=== PATIENT | female | born 1995 | race African-American/Black ===

== ENCOUNTER 2016-10-27 13:38 | Emergency (ER) | payer MEDICAID, OTHER ==
[~2016-10-27] VITALS: Ht 170.2 cm; Wt 100.0 kg
[~2016-10-27 13:38] MED LIST: CLIN150 PO
[2016-10-27 13:40] VITALS: BP 137/63; PULSE 84; RESP 14; TEMP 97.8; O2SAT 100
--- NOTE | 2016-10-27 14:56 | PD ---
HPI Chief Complaint: Complaint Time Seen by Provider: 14:55 Travel History International Travel<30 days: No Contact w/Intl Traveler<30days: No Traveled to known affect area: No History of Present Illness HPI 21-year-old female with PMH of anxiety, asthma, GERD presents to the ED for evaluation of 3 day history of dysuria, increased urinary urgency and frequency. Gradual onset. Patient also complains of thick white vaginal discharge. She states this is similar to previous episodes of yeast infection. She states that she is not currently sexually active. LMP 6 weeks ago. States her period is irregular. Denies fever, chills, flank pain, abdominal pain, hematuria, nausea or vomiting. PFSH Past Medical History Anxiety: Yes Diminished Hearing: No GERD: Yes Respiratory: Yes (ASTHMA) Immunizations Current: Yes ?: Not : 1 Para: 1 Past Surgical History Abdominal Surgery: Yes (UMBILICAL HERNIA REPAIR) Section: Yes Social History Alcohol Use: No Tobacco Use: No Substance Use: No Allergies-Medications (Allergen,Severity, Reaction): Coded Allergies: Phenergan (Verified Allergy, Severe, Swelling, 10/27/16) TONGUE SWELLING Bactrim (Verified Allergy, Intermediate, Hives, 10/27/16) this was reported by pts mom. Reported Meds & Prescriptions Reported Meds & Active Scripts Active Pyridium (Phenazopyridine HCl) 100 Mg Tab 100 Mg PO Q8H PRN Miconazole 3 Vaginal Supp (Miconazole Nitrate) 200 Mg Supp 200 Mg VAGINAL HS Macrobid (Nitrofurantoin Monoh/Nitrofur Macro) 100 Mg Cap 100 Mg PO BID 7 Days Review of Systems Except as stated in HPI: all other systems reviewed are Neg Physical Exam Narrative GENERAL: Well-nourished, well-developed nontoxic appearing white female in no acute distress. SKIN: Warm and dry. HEAD: Normocephalic. EYES: No scleral icterus. No injection or drainage. NECK: Supple, trachea midline. No JVD or lymphadenopathy. CARDIOVASCULAR: Regular rate and rhythm without murmurs, gallops, or rubs. RESPIRATORY: Breath sounds clear and equal bilaterally. No accessory muscle use. GASTROINTESTINAL: Abdomen soft, non-tender, nondistended. No suprapubic tenderness. Active bowel sounds. MUSCULOSKELETAL: No cyanosis, or edema. BACK: Nontender without obvious deformity. No CVA tenderness. Data Data Last Documented VS Vital Signs Date Time Temp Pulse Resp B/P Pulse Ox O2 Delivery O2 Flow Rate FiO2 10/27/16 15:16 16 10/27/16 13:40 97.8 84 137/63 100 Room Air Orders Urinalysis - C+S If Indicated (10/27/16 13:47) Ed Urine Pregnancytest Poc (10/27/16 15:08) Urine Culture (10/27/16 15:15) Labs Laboratory Tests Test 10/27/16 15:15 Urine Color YELLOW Urine Turbidity HAZY Urine pH 7.0 Urine Specific [place] 1.032 Urine Protein 30 mg/dL Urine Glucose (UA) NEG mg/dL Urine Ketones NEG mg/dL Urine Occult Blood NEG Urine Nitrite NEG Urine Bilirubin NEG Urine Urobilinogen 2.0 MG/DL Urine Leukocyte Esterase LARGE Urine RBC 7 /hpf Urine WBC 23 /hpf Urine Squamous Epithelial 17 /hpf Cells Urine Bacteria OCC /hpf Urine Mucus FEW /lpf Microscopic Urinalysis Comment CULTURE INDICATED MDM Medical Decision Making Medical Screen Exam Complete: Yes Emergency Medical Condition: Yes Differential Diagnosis Cystitis versus pyelonephritis versus vaginal candidiasis versus STI versus other Narrative Course 21-year-old female with PMH of anxiety, asthma, GERD presents to the ED for evaluation of 3 day history of dysuria, increased urinary urgency and frequency. Gradual onset. Patient also complains of thick white vaginal discharge. She states this is similar to previous episodes of yeast infection. States that she has not been sexually active in 18 months. LMP 6 weeks ago. States her period is irregular. Denies fever, chills, flank pain, abdominal pain, hematuria, nausea or vomiting. Vitals and physical exam are reassuring. Bedside test is negative. We will defer pelvic exam since the patient has not been sexually active. We'll treat empirically for vaginal candidiasis. UA hazy with large leukocyte esterase, 23 wbc's, occasional bacteria, culture pending. Patient was prescribed Macrobid twice a day 7 days , short course of Pyridium and 3 day vaginal suppository of Monistat. She is instructed to take all medication as prescribed, even if symptoms resolve, follow up with the geomorphologist or primary care provider. She was cautioned that vaginal candidiasis symptoms can continue after treatment, we discussed reasons to return. She indicated understanding of the instructions and is amenable to plan of care. She is stable and discharged home. Diagnosis Primary Impression: Urinary tract infection Qualified Code: N30.00 - Acute cystitis without hematuria Additional Impressions: Cystitis Vaginal candidiasis Referrals: [facility] Primary Care Physician Patient Instructions: General Instructions, Urinary Tract Infection in Women ( ED), Vulvovaginal Candidiasis (ED) Additional Instructions: Rest, hydrate. Take all antibiotics as prescribed, even if your symptoms resolve. Take Pyridium as needed for pain with urination. Symptoms of yeast infection may continue for up to 5-7 days after treatment. Follow-up with the geomorphologist and primary care provider. Return to the ED for any urgent or emergent medical condition. Med/Other Pt SpecificInfo: Prescription(s) given Scripts Phenazopyridine (Pyridium)100 Mg [id number] Mg PO Q8H PRN (DYSURIA) #6 TAB Ref 0 Prov:Rajani Salas DO 10/27/16 Miconazole 3 Vaginal Supp 200 Mg [id number] Mg VAGINAL HS #3 SUPP Ref 0 Prov:Rajani Salas DO 10/27/16 Nitrofurantoin Monohydrate Macrocrystals (Macrobid)100 Mg [id number] Mg PO BID 7 Days Ref 0 Prov:Rajani Salas DO 10/27/16 Disposition: 01 DISCHARGE HOME Condition: Stable Harini Dasilva Oct 27, 2016 14:56
[2016-10-27 15:51] LABS: BACTERIA, URINE OCC /hpf; BLOOD, URINE NEG (NEG); COMMENT (UR) CULTURE INDICATED; CULTURE IF INDICATED CULTURE INDICATED; GLUCOSE,URINE NEG (NEG); KETONE, URINE NEG (NEG); MUCUS URINE FEW /lpf (OCC); NITRITE,URINE NEG (NEG); SQUAMOUS EPITHELIAL CELL URINE 17 /hpf (0-5); URINE COLOR YELLOW (YELLW/STRAW)
[2016-10-27] MEDS ORDERED: MACR100C2 PO (16:02)
[2016-10-27] MEDS ORDERED: PHEN0.4T PO (16:02)
[2016-10-27] MEDS ORDERED: MICO200V VAGINAL (16:02)
== END 2016-10-27 16:42 | disposition home or self-care (01) ==
LOC: NEPA 13:38
DX: N30.00 Acute cystitis without hematuria (principal); B37.3 Candidiasis of vulva and vagina; Z86.59 Personal history of other mental and behavioral disorders; Z87.09 Personal history of other diseases of the respiratory system; Z87.19 Personal history of other diseases of the digestive system
CPT/HCPCS: 81001; 84703; 87086; 99283

== ENCOUNTER 2017-01-03 11:23 | Emergency (ER) | payer MEDICAID, OTHER ==
[~2017-01-03] VITALS: Ht 170.2 cm; Wt 104.5 kg
[~2017-01-03 11:23] MED LIST changes: -CLIN150 PO; +MACR100C2 PO; +MICO200V VAGINAL; +PHEN0.4T PO
[2017-01-03 11:25] VITALS: BP 136/64; PULSE 84; RESP 20; TEMP 97.9; O2SAT 98
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
[2017-01-03] MEDS ORDERED: TETANUS/DIPHTHERIA TOXOID ADULT 0.5 ML VIAL IM ONE (12:30)
--- NOTE | 2017-01-03 12:48 | RADRPT ---
EXAM DATE/TIME: 01/03/2017 12:25 [facility] COMPARISON: No previous studies available for comparison. INDICATIONS : Right hand pain. MEDICAL HISTORY : None. SURGICAL HISTORY : None. ENCOUNTER: Initial ACUITY: 1 day PAIN SCORE: 5/10 LOCATION: Right medial hand FINDINGS: Three view examination of the right hand demonstrates no soft tissue swelling, dislocation, or fractu re. The carpal bones appear intact. The interphalangeal and metacarpophalangeal joints are intact. Bony mineralization is normal. CONCLUSION: No acute disease. John Aly MD on January 03, 2017 at 12:47 Board Certified Radiologist. This report was verified electronically.
== END 2017-01-03 13:18 | disposition home or self-care (01) ==
LOC: NEPB 11:23
DX: M79.641 Pain in right hand (principal); Z23 Encounter for immunization; S60.511A Abrasion of right hand, initial encounter; S50.811A Abrasion of right forearm, initial encounter; W51.XXXA Accidental striking against or bumped into by another person, initial encounter; Y93.9 Activity, unspecified; Y92.9 Unspecified place or not applicable
CPT/HCPCS: 73130; 90471; 90714

== ENCOUNTER 2017-03-30 14:11 | Emergency (ER) | payer MEDICAID ==
[~2017-03-30] VITALS: Ht 170.2 cm; Wt 100.0 kg
[2017-03-30 14:12] VITALS: BP 121/74; PULSE 107; RESP 16; TEMP 98.4; O2SAT 98
--- NOTE | 2017-03-30 14:44 | PD ---
Physical Exam Time Seen by Provider: 14:43 Narrative 21 y/o female here with n/v, lower abdominal pain for one day. lmp 2 weeks ago. Denies dysuria, vaginal bleeding/dc. Vital signs reviewed. Seen at triage desk. Awaiting bed placement. Data Data Last Documented VS Vital Signs Date Time Temp Pulse Resp B/P Pulse Ox O2 Delivery O2 Flow Rate FiO2 03/30/17 14:12 98.4 107 16 121/74 98 MDM Medical Record Reviewed: Yes Supervised Visit with KEMAR: No Ector Cameron Mar 30, 2017 14:44
== END 2017-03-30 15:05 | disposition left against medical advice (07) ==
LOC: NED 14:11
DX: R10.30 Lower abdominal pain, unspecified (principal)
CPT/HCPCS: 99281

== ENCOUNTER 2017-06-25 14:49 | Emergency (ER) | payer MEDICAID ==
[~2017-06-25] VITALS: Ht 172.7 cm; Wt 80.0 kg
[2017-06-25 14:52] VITALS: BP 113/64; PULSE 84; RESP 18; TEMP 97.8; O2SAT 99
--- NOTE | 2017-06-25 14:54 | PD ---
Physical Exam Time Seen by Provider: 14:53 Narrative 21yo F c/o dysuria, frequency, urgency x 1 week. Denies vag dc, odor, abd pain. LMP 2 weeks ago. Denies fever, vomiting. Patient seen in triage. VS reviewed. Awaiting bed placement. MDM Supervised Visit with KEMAR: Shelby Curtis Jun 25, 2017 14:54
[2017-06-25 15:33] LABS: BACTERIA, URINE FEW /hpf; BLOOD, URINE NEG (NEG); COMMENT (UR) CULTURE INDICATED; CULTURE IF INDICATED CULTURE INDICATED; GLUCOSE,URINE NEG (NEG); KETONE, URINE NEG (NEG); MUCUS URINE FEW /lpf (OCC); NITRITE,URINE NEG (NEG); PH, URINE 7.5 (5.0-8.5); SQUAMOUS EPITHELIAL CELL URINE 10 /hpf (0-5); URINE COLOR YELLOW (YELLW/STRAW)
--- NOTE | 2017-06-25 15:50 | PD ---
HPI Chief Complaint: Complaint Time Seen by Provider: 15:36 Travel History International Travel<30 days: No Contact w/Intl Traveler<30days: No Traveled to known affect area: No History of Present Illness HPI 21-year-old Afro-[place] female with history of recurrent urinary tract infections comes in with dysuria for the past week. Eyes flank pain, fever, or vaginal symptoms. She denies abdominal pain or nausea or vomiting. Urine sample was checked in triage showing probable urinary tract infection. Patient is allergic to promethazine, sulfa, and trimethoprim. PFSH Past Medical History Hx Anticoagulant Therapy: No Asthma: Yes Anxiety: Yes Cardiovascular Problems: No Chemotherapy: No Cerebrovascular Accident: No Diabetes: No Diminished Hearing: No GERD: Yes Respiratory: Yes (Asthma) Immunizations Current: Yes : 1 Para: 1 Miscarriage: 0 : 0 Past Surgical History Abdominal Surgery: Yes (UMBILICAL HERNIA REPAIR) Section: Yes (X 1 ) Social History Alcohol Use: No Tobacco Use: No Substance Use: No Allergies-Medications (Allergen,Severity, Reaction): Coded Allergies: promethazine (Unverified Allergy, Severe, Swelling, 06/09/17) TONGUE SWELLING sulfamethoxazole (Unverified Allergy, Intermediate, Hives, 06/09/17) this was reported by pts mom. trimethoprim (Unverified Allergy, Intermediate, Hives, 06/09/17) this was reported by pts mom. Reported Meds & Prescriptions Reported Meds & Active Scripts Active Pyridium (Phenazopyridine HCl) 100 Mg Tab 100 Mg PO Q8H PRN Miconazole 3 Vaginal Supp (Miconazole Nitrate) 200 Mg Supp 200 Mg VAGINAL HS Macrobid (Nitrofurantoin Monoh/Nitrofur Macro) 100 Mg Cap 100 Mg PO BID 7 Days Review of Systems General / Constitutional: No: Fever Eyes: No: Visual changes HENT: No: Headaches Cardiovascular: No: Chest Pain or Discomfort Respiratory: No: Shortness of Breath Gastrointestinal: No: Abdominal Pain Genitourinary: Positive: Urgency, Frequency, Dysuria Musculoskeletal: No: Pain Skin: No Rash Neurologic: No: Weakness Psychiatric: No: Depression Endocrine: No: Polydipsia Hematologic/Lymphatic: No: Easy Bruising Physical Exam Narrative GENERAL: Patient appears in no acute distress. SKIN: Warm and dry. Normal color. Normal turgor HEAD: Atraumatic. Normocephalic. EYES: Pupils equal and round. No scleral icterus. No injection or drainage. ENT: No nasal bleeding or discharge. Mucous membranes pink and moist. Pharynx is clear. NECK: Trachea midline. Supple. CARDIOVASCULAR: Regular rate and rhythm. RESPIRATORY: No accessory muscle use. Clear to auscultation. Breath sounds equal bilaterally. GASTROINTESTINAL: Abdomen soft, non-tender, nondistended. Hepatic and splenic margins not palpable. No CVA tenderness. MUSCULOSKELETAL: Extremities without clubbing, cyanosis, or edema. No obvious deformities. NEUROLOGICAL: Awake and alert. No obvious cranial nerve deficits. Motor grossly within normal limits. Five out of 5 muscle strength in the arms and legs. Normal speech. PSYCHIATRIC: Appropriate mood and affect; insight and judgment normal. Data Data Last Documented VS Vital Signs Date Time Temp Pulse Resp B/P (MAP) Pulse Ox O2 Delivery O2 Flow Rate FiO2 06/25/17 14:52 97.8 84 18 113/64 (80) 99 Room Air Orders Orders Urinalysis - C+S If Indicated (06/25/17 14:54) Ed Urine Pregnancytest Poc (06/25/17 14:54) Urine Culture (06/25/17 15:00) Labs Laboratory Tests Test 06/25/17 15:00 Urine Color YELLOW Urine Turbidity HAZY Urine pH 7.5 Urine Specific [place] 1.030 Urine Protein 30 mg/dL Urine Glucose (UA) NEG mg/dL Urine Ketones NEG mg/dL Urine Occult Blood NEG Urine Nitrite NEG Urine Bilirubin NEG Urine Urobilinogen 2.0 MG/DL Urine Leukocyte Esterase MOD Urine RBC 4 /hpf Urine WBC 12 /hpf Urine Squamous Epithelial Cells 10 /hpf Urine Amorphous Sediment RARE Urine Bacteria FEW /hpf Urine Mucus FEW /lpf Microscopic Urinalysis Comment CULTURE INDICATED MDM Medical Decision Making Medical Screen Exam Complete: Yes Emergency Medical Condition: Yes Differential Diagnosis Dysuria. Urinary frequency. Urinary tract infection. Narrative Course Urine culture is pending. Patient is treated with Keflex 500 mg 3 times a day 7 days. Patient to follow up with [facility]. Patient can follow-up sooner if symptoms worsen as needed. Diagnosis Primary Impression: Cystitis Referrals: [facility] Patient Instructions: Dysuria (ED), General Instructions Additional Instructions: Urine culture is pending. Patient is treated with Keflex 500 mg 3 times a day 7 days. Patient to follow up with [facility] with the women[facility]. Patient can follow-up sooner if symptoms worsen as needed. Med/Other Pt SpecificInfo: Prescription(s) given Disposition: 01 DISCHARGE HOME Condition: Stable Jim Up Jun 25, 2017 15:50
[2017-06-25] MEDS ORDERED: MICO200V VAGINAL (15:56)
[2017-06-25] MEDS ORDERED: CEPH-460 PO (15:56)
== END 2017-06-25 16:17 | disposition home or self-care (01) ==
LOC: NEPK 14:49
DX: N30.90 Cystitis, unspecified without hematuria (principal); J45.909 Unspecified asthma, uncomplicated; F41.9 Anxiety disorder, unspecified; K21.9 Gastro-esophageal reflux disease without esophagitis; Z79.899 Other long term (current) drug therapy; Z88.2 Allergy status to sulfonamides; Z88.8 Allergy status to other drugs, medicaments and biological substances
CPT/HCPCS: 81001; 84703; 87086; 99284

== ENCOUNTER 2017-09-01 18:29 | Emergency (ER) | payer MEDICAID ==
[~2017-09-01 18:29] MED LIST changes: +CEPH-460 PO
[2017-09-01 18:32] VITALS: BP 152/70; PULSE 96; RESP 18; TEMP 98.3; O2SAT 100
[2017-09-01] MEDS ORDERED: AMOX875T PO (19:37)
--- NOTE | 2017-09-01 19:40 | PD ---
HPI Chief Complaint: ENT Complaint Time Seen by Provider: 19:32 Travel History International Travel<30 days: No Contact w/Intl Traveler<30days: No Traveled to known affect area: No History of Present Illness HPI Patient comes in complaining of sore throat ongoing for 2 days. Patient states she had a fever yesterday of 101.5. Patient states she's been taking Tylenol seems to help alleviate the pain temporarily as well as her fever. Patient denies any nausea, vomiting, chest pain, shortness of breath, loss change in bowel or bladder, , or headaches. Patient reports associated sinus pressure ongoing for the past 2 days. Patient denies any known sick contacts, but states her son is in daycare has been having sinus congestion. Pain is worse with swallowing. Patient describes pain as excruciating without radiation. PFSH Past Medical History Hx Anticoagulant Therapy: No Asthma: Yes Anxiety: Yes Cardiovascular Problems: No Chemotherapy: No Cerebrovascular Accident: No Developmental Delay: No Diabetes: No Diminished Hearing: No GERD: Yes Respiratory: Yes (Asthma) Immunizations Current: Yes Tetanus Vaccination: < 5 Years Influenza Vaccination: No ?: Unknown : 1 Para: 1 Miscarriage: 0 : 0 Past Surgical History Abdominal Surgery: Yes (UMBILICAL HERNIA REPAIR) Section: Yes (X 1 ) Social History Alcohol Use: No Tobacco Use: No Substance Use: No Allergies-Medications (Allergen,Severity, Reaction): Coded Allergies: promethazine (Verified Allergy, Severe, Swelling, 09/01/17) TONGUE SWELLING sulfamethoxazole (Verified Allergy, Intermediate, Hives, 09/01/17) this was reported by pts mom. trimethoprim (Verified Allergy, Intermediate, Hives, 09/01/17) this was reported by pts mom. Reported Meds & Prescriptions Reported Meds & Active Scripts Active Amoxicillin 875 Mg Tab 875 Mg PO BID 10 Days Miconazole 3 Vaginal Supp (Miconazole Nitrate) 200 Mg Supp 200 Mg VAGINAL HS Keflex (Cephalexin) 500 Mg Capsule 500 Mg PO Q8H 7 Days Pyridium (Phenazopyridine HCl) 100 Mg Tab 100 Mg PO Q8H PRN Macrobid (Nitrofurantoin Monoh/Nitrofur Macro) 100 Mg Cap 100 Mg PO BID 7 Days Review of Systems Except as stated in HPI: all other systems reviewed are Neg Physical Exam Narrative GENERAL: Well-developed, overly nourished, in no acute distress, and non-ill appearing. SKIN: Focused skin assessment warm and dry. HEAD: Atraumatic. Normocephalic. EYES: Pupils equal and round. EOMI. No scleral icterus. No injection or drainage. ENT: No nasal bleeding or discharge. Mucous membranes pink and moist. Tympanic membranes pearly roach bilaterally. Posterior pharynx erythematous without exudate. Uvula is midline. Patient swallowing own saliva. Tenderness to maxillary sinuses bilaterally. NECK: Trachea midline. No cervical lymphadenopathy. Supple. No nuclear rigidity. CARDIOVASCULAR: Regular rate and rhythm. No murmur appreciated. RESPIRATORY: No accessory muscle use. No respiratory distress. Clear to auscultation. Breath sounds equal bilaterally. No coughing on exam. MUSCULOSKELETAL: No obvious deformities. No clubbing. No cyanosis. No edema. Full range of motion. NEUROLOGICAL: Awake and alert. No obvious cranial nerve deficits. Motor grossly within normal limits. Normal speech. PSYCHIATRIC: Appropriate mood and affect; insight and judgment normal. Data Data Last Documented VS Vital Signs Date Time Temp Pulse Resp B/P (MAP) Pulse Ox O2 Delivery O2 Flow Rate FiO2 09/01/17 19:46 09/01/17 18:32 98.3 96 18 100 Room Air Orders Orders Group A Rapid Strep Screen (09/01/17 18:45) Ed Discharge Order (09/01/17 19:40) Amoxicillin (Trimox) (09/01/17 19:45) [facility] Medical Decision Making Medical Screen Exam Complete: Yes Emergency Medical Condition: Yes Differential Diagnosis Strep pharyngitis, viral pharyngitis, upper respiratory infection, sinusitis, viral syndrome, other Narrative Course Patient looks great, non-ill appearing. The patient is tolerating fluids and is well hydrated. Appears pharyngitis confirmed by rapid Strep. assay. No clinical evidence by history or evaluation to suspect meningitis and/or sepsis. There was no evidence to suggest peritonsillar abscess or retropharyngeal abscess. I discussed with the patient, diagnosis, plan of care and to follow up with the patients primary physician. The patient was given antibiotics. The patient was instructed to return if the worsens in anyway, especially if not tolerating fluids, increased pain or swelling, difficulty swallowing or breathing, or as needed. The patient agreed with plan. Patient in no obvious distress upon re-evaluation. All pertinent laboratory result(s) discussed with patient. Patient was asked if they wanted to speak to my attending, which the patient did not wish to do at this time. Any questions/ concerns in reference to patient diagnosis/condition discussed and clarified prior to patient's discharge. Reinforced sheer importance of close follow up with patient's primary physician or primary care clinic. Instructed patient to return to ED immediately, if symptoms return/worsen. Patient showed understanding of above instructions. Further instructions and recommendations were detailed in discharge paperwork. Patient ambulated without difficulty out of ED at discharge. Diagnosis Primary Impression: Pharyngitis Qualified Codes: J02.0 - Streptococcal pharyngitis Referrals: [facility] Patient Instructions: General Instructions, Pharyngitis (DC) Additional Instructions: Follow-up with your primary care physician in 5-7 days for reevaluation. Take all medication as prescribed. Use [id number] Tylenol and/or ibuprofen as needed for pain and/or fevers. Follow instructions on the packaging. Drink plenty of non-caffeinated and nonalcoholic fluids. Gargle with warm salt water gargles for symptomatic relief. Do not swallow salt water. Return to the emergency department if symptoms get worse. Med/Other Pt SpecificInfo: Prescription(s) given Scripts Amoxicillin (Amoxicillin) 875 Mg Tab 875 MG PO BID for Infection for 10 Days, #20 TAB 0 Refills Prov: Bashir Estrada MD 09/01/17 Disposition: 01 DISCHARGE HOME Condition: Stable Cortez Ardon Sep 01, 2017 19:40
[2017-09-01] MEDS ORDERED: AMOXICILLIN 875 MG TAB PO ONE (19:45)
== END 2017-09-01 19:58 | disposition home or self-care (01) ==
LOC: NEPK 18:29
DX: J02.0 Streptococcal pharyngitis (principal); J45.909 Unspecified asthma, uncomplicated; F41.9 Anxiety disorder, unspecified; K21.9 Gastro-esophageal reflux disease without esophagitis
CPT/HCPCS: 87880; 99283

== ENCOUNTER 2018-01-11 08:10 | Emergency (ER) | payer SELFPAY ==
[~2018-01-11] VITALS: Ht 170.2 cm; Wt 102.0 kg
[~2018-01-11 08:10] MED LIST changes: +AMOX875T PO
[2018-01-11 08:13] VITALS: BP 147/71; PULSE 84; RESP 15; TEMP 98; O2SAT 99
--- NOTE | 2018-01-11 09:25 | PD ---
HPI Chief Complaint: Injury Time Seen by Provider: 09:13 Travel History International Travel<30 days: No Contact w/Intl Traveler<30days: No Traveled to known affect area: No History of Present Illness HPI 22-year-old [id number] female presents to ED for evaluation of pain of the right thumb after breaking her acrylic nail. It is rated 0/10 unless touched and then 10/10. Patient states that she was at work when the nail popped backwards somehow. She is unsure of the mechanism of injury.. She denies numbness, tingling, weakness, limitations to range of motion of the extremity. No treatment attempted at home. PFSH Past Medical History Hx Anticoagulant Therapy: No Asthma: Yes Anxiety: Yes Cardiovascular Problems: No Chemotherapy: No Cerebrovascular Accident: No Developmental Delay: No Diabetes: No Diminished Hearing: No GERD: Yes Respiratory: Yes (Asthma) Immunizations Current: Yes ?: Not LMP: 12/2017 : 1 Para: 1 Miscarriage: 0 : 0 Past Surgical History Abdominal Surgery: Yes (UMBILICAL HERNIA REPAIR) Section: Yes (X 1 ) Social History Alcohol Use: No Tobacco Use: No Substance Use: No Allergies-Medications (Allergen,Severity, Reaction): Coded Allergies: promethazine (Verified Allergy, Severe, Swelling, 01/11/18) TONGUE SWELLING sulfamethoxazole (Verified Allergy, Intermediate, Hives, 01/11/18) this was reported by pts mom. trimethoprim (Verified Allergy, Intermediate, Hives, 01/11/18) this was reported by pts mom. Reported Meds & Prescriptions Reported Meds & Active Scripts Active Review of Systems Except as stated in HPI: all other systems reviewed are Neg Physical Exam Narrative GENERAL: Well-nourished, well-developed AA female. SKIN: Focused skin assessment warm/dry. HEAD: Normocephalic. EYES: No scleral icterus. No injection or drainage. NECK: Supple, trachea midline. No JVD or lymphadenopathy. CARDIOVASCULAR: Regular rate and rhythm without murmurs, gallops, or rubs. RESPIRATORY: Breath sounds equal bilaterally. No accessory muscle use. GASTROINTESTINAL: Abdomen soft, non-tender, nondistended. MUSCULOSKELETAL: No cyanosis, or edema. FOCUSED RIGHT UPPER EXTREMITY EXAM: Extremity intact.There are 2+cm acrylic nails present. The nail of the thumb is broken ~2mm into the nail bed.There is scant bleeding but the tissue and nail bed is otherwise healthy. False nail is attached at the radial lateral distal border. BACK: Nontender without obvious deformity. No CVA tenderness. Data Data Last Documented VS Vital Signs Date Time Temp Pulse Resp B/P (MAP) Pulse Ox O2 Delivery O2 Flow Rate FiO2 01/11/18 08:13 98.0 84 15 147/71 (96) 99 Orders Orders Ed Discharge Order (01/11/18 09:25) MDM Medical Decision Making Medical Screen Exam Complete: Yes Emergency Medical Condition: Yes Differential Diagnosis nail avulsion versus wound infection versus Narrative Course 22-year-old [id number] female presents to ED for evaluation of pain of the right thumb after breaking her acrylic nail. Patient states that she was at work when the nail popped backwards somehow. She is unsure of the mechanism of injury. Vitals reviewed. On exam the patient has extremely long acrylic nails. The right thumb nail is broken approximately 2 mm below the distal tip of the nail. This is attached at the radial lateral distal border. This was easily removed by hand. The wound was washed and dried. A thin layer of antibiotic ointment and bandage was applied. Patient's instructed to keep the wound clean, dry, covered, have the acrylic nail removed and do not reapply until the nail is gone back to normal length. She is instructed to monitor for signs of infection, return should these occur. She is stable and discharged home. Diagnosis Primary Impression: Fingernail injury Qualified Codes: S69.92XA - Unspecified injury of left wrist, hand and finger( s), initial encounter Referrals: Primary Care Physician Additional Instructions: Keep the wound clean, dry and covered. Have the acrylic nail removed and do not reapply until your natural nail has grown in to normal length. Monitor for signs of infection (pus, redness, fevers.) 600mg ibuprofen every eight hours to reduce pain and inflammation. Elevating the hand may help to reduce throbbing pain. Follow up with the primary care provider. Return to the ED for any urgent or emergent medical condition. Disposition: 01 DISCHARGE HOME Condition: Stable Harini Dasilva Jan 11, 2018 09:25
== END 2018-01-11 09:32 | disposition home or self-care (01) ==
LOC: NEPK 08:10
DX: S69.91XA Unspecified injury of right wrist, hand and finger(s), initial encounter (principal); J45.909 Unspecified asthma, uncomplicated; F41.9 Anxiety disorder, unspecified; K21.9 Gastro-esophageal reflux disease without esophagitis; X50.9XXA Other and unspecified overexertion or strenuous movements or postures, initial encounter; Y99.0 Civilian activity done for income or pay; Z88.2 Allergy status to sulfonamides; Z88.8 Allergy status to other drugs, medicaments and biological substances
CPT/HCPCS: 99282

== ENCOUNTER 2018-02-19 19:35 | Emergency (ER) | payer MEDICAID ==
[2018-02-19 19:41] VITALS: BP 115/60; PULSE 106; RESP 18; TEMP 98.1; O2SAT 100
[2018-02-19 19:52] VITALS: O2SAT 99
--- NOTE | 2018-02-19 19:58 | PD ---
HPI Chief Complaint: Chest Pain Time Seen by Provider: 19:46 Travel History International Travel<30 days: No Contact w/Intl Traveler<30days: No Traveled to known affect area: No History of Present Illness HPI The patient is a 22-year-old female who presents to the emergency department for shortness of breath. Patient has a history of chronic shortness of breath which she attributes to asthma. The patient does not like to use her albuterol inhaler, states that elevates her heart rate. The patient states she has had some increasing shortness of breath over the last several days. The patient states she was seen or [facility] where they did a blood test for possible blood clots that was positive and then did a subsequent CT to evaluate for blood clots. The patient does not know the results of her CT at that time but does not currently take any blood thinners. She denies any recent hospitalizations, surgeries, or prolonged travel in the last 3 months. She denies any known history of cardiac disease or previous history of congestive heart failure. She denies any significant edema to lower extremities. She does note an intermittent dry nonproductive cough. She also complains of intermittent sharp stabbing anterior chest pains. She denies any associated fever, chills, or sweats. The patient recently lost insurance secondary to making too much money at work and is no longer able to see her primary physician, Dr. Carlin. [facility] Past Medical History Hx Anticoagulant Therapy: No Asthma: Yes Anxiety: Yes Cardiovascular Problems: No Chemotherapy: No Cerebrovascular Accident: No Developmental Delay: No Diabetes: No Diminished Hearing: No GERD: Yes Respiratory: Yes (Asthma) Immunizations Current: Yes Influenza Vaccination: No ?: Not LMP: 02/05/18 : 1 Para: 1 Miscarriage: 0 : 0 Past Surgical History Abdominal Surgery: Yes (UMBILICAL HERNIA REPAIR) Section: Yes (X 1 ) Social History Alcohol Use: No Tobacco Use: No Substance Use: No Allergies-Medications (Allergen,Severity, Reaction): Coded Allergies: promethazine (Verified Allergy, Severe, Swelling, 02/19/18) TONGUE SWELLING sulfamethoxazole (Verified Allergy, Intermediate, Hives, 02/19/18) this was reported by pts mom. trimethoprim (Verified Allergy, Intermediate, Hives, 02/19/18) this was reported by pts mom. Reported Meds & Prescriptions Reported Meds & Active Scripts Active No Active Prescriptions or Reported Medications Review of Systems Except as stated in HPI: all other systems reviewed are Neg General / Constitutional: No: Fever Cardiovascular: Positive: Chest Pain or Discomfort Respiratory: Positive: Cough, Shortness of Breath, Wheezing, Pleuritic Pain Gastrointestinal: No: Nausea, Vomiting Musculoskeletal: No: Edema Neurologic: No: Weakness Physical Exam Narrative GENERAL: Awake, alert, pleasant 22-year-old female who appears her stated age and is in no acute respiratory distress. SKIN: Focused skin assessment warm/dry. HEAD: Atraumatic. Normocephalic. EYES: No injection or drainage. ENT: No nasal bleeding or discharge. Mucous membranes pink and moist. NECK: Trachea midline. No JVD. CARDIOVASCULAR: Regular, tachycardic with a heart rate of 105. No audible murmur. Pulmonary: Slight prolonged expiratory phase with tight lung sounds. No audible wheeze. GASTROINTESTINAL: Abdomen soft, non-tender, nondistended. MUSCULOSKELETAL: No obvious deformities. No clubbing. No cyanosis. No edema. NEUROLOGICAL: Awake and alert. No obvious cranial nerve deficits. Motor grossly within normal limits. Normal speech. PSYCHIATRIC: Appropriate mood and affect; insight and judgment normal. Data Data Last Documented VS Vital Signs Date Time Temp Pulse Resp B/P (MAP) Pulse Ox O2 Delivery O2 Flow Rate FiO2 02/19/18 20:05 91 18 157/65 (95) 98 Room Air 02/19/18 19:41 98.1 Orders Orders Complete Blood Count With Diff (02/19/18 19:50) Comprehensive Metabolic Panel (02/19/18 19:50) B-Type Natriuretic Peptide (02/19/18 19:50) D-Dimer (02/19/18 19:50) Magnesium (Mg) (02/19/18 19:50) Ckmb (Isoenzyme) Profile (02/19/18 19:50) Troponin I (02/19/18 19:50) Iv Access Insert/Monitor (02/19/18 19:50) Electrocardiogram (02/19/18 19:50) Ecg Monitoring (02/19/18 19:50) Oximetry (02/19/18 19:50) Oxygen Administration (02/19/18 19:50) Chest, Single Ap (02/19/18 19:50) Sodium Chloride 0.9% Flush (Ns Flush) (02/19/18 20:00) Methylprednisolone So Succ Inj (Solumedr (02/19/18 20:00) Albuterol-Ipratropium Neb (Duoneb Neb) (02/19/18 20:00) CKMB (02/19/18 19:58) CKMB% (02/19/18 19:58) Labs Laboratory Tests Test 02/19/18 19:58 White Blood Count 6.7 TH/MM3 Red Blood Count 4.37 MIL/MM3 Hemoglobin 12.7 GM/DL Hematocrit 37.9 % Mean Corpuscular Volume 86.8 FL Mean Corpuscular Hemoglobin 29.2 PG Mean Corpuscular Hemoglobin Concent 33.6 % Red Cell Distribution Width 13.0 % Platelet Count 324 TH/MM3 Mean Platelet Volume 8.3 FL Neutrophils (%) (Auto) 57.5 % Lymphocytes (%) (Auto) 34.7 % Monocytes (%) (Auto) 6.3 % Eosinophils (%) (Auto) 1.0 % Basophils (%) (Auto) 0.5 % Neutrophils # (Auto) 3.9 TH/MM3 Lymphocytes # (Auto) 2.3 TH/MM3 Monocytes # (Auto) 0.4 TH/MM3 Eosinophils # (Auto) 0.1 TH/MM3 Basophils # (Auto) 0.0 TH/MM3 CBC Comment DIFF FINAL Differential Comment D-Dimer Quantitative (PE/DVT) LESS THAN 0.19 MG/L FEU Blood Urea Nitrogen 9 MG/DL Creatinine 0.85 MG/DL Random Glucose 119 MG/DL Total Protein 8.1 GM/DL Albumin 3.8 GM/DL Calcium Level 8.8 MG/DL Magnesium Level 1.9 MG/DL Alkaline Phosphatase 105 U/L Aspartate Amino Transf (AST/SGOT) 17 U/L Alanine Aminotransferase (ALT/SGPT) 25 U/L Total Bilirubin 0.3 MG/DL Sodium Level 141 MEQ/L Potassium Level 3.4 MEQ/L Chloride Level 107 MEQ/L Carbon Dioxide Level 24.6 MEQ/L Anion Gap 9 MEQ/L Estimat Glomerular Filtration Rate 101 ML/MIN Total Creatine Kinase 116 U/L Creatine Kinase MB 1.0 NG/ML Troponin I LESS THAN 0.02 NG/ML B-Type Natriuretic Peptide 16 PG/ML MDM Medical Decision Making Medical Screen Exam Complete: Yes Emergency Medical Condition: Yes Medical Record Reviewed: Yes Interpretation(s) EKG reveals sinus tachycardia with a heart rate of 109. Short NV interval of [address] changes. No inverted T waves noted. No obvious delta wave noted. Last Impressions Chest X-Ray 02/19/18 1950 Signed Impressions: Service Date/Time: Monday, February 19, 2018 19:59 - CONCLUSION: No evidence of acute cardiopulmonary disease. John Valentino MD Laboratory Tests Test 02/19/18 19:58 White Blood Count 6.7 TH/MM3 Red Blood Count 4.37 MIL/MM3 Hemoglobin 12.7 GM/DL Hematocrit 37.9 % Mean Corpuscular Volume 86.8 FL Mean Corpuscular Hemoglobin 29.2 PG Mean Corpuscular Hemoglobin Concent 33.6 % Red Cell Distribution Width 13.0 % Platelet Count 324 TH/MM3 Mean Platelet Volume 8.3 FL Neutrophils (%) (Auto) 57.5 % Lymphocytes (%) (Auto) 34.7 % Monocytes (%) (Auto) 6.3 % Eosinophils (%) (Auto) 1.0 % Basophils (%) (Auto) 0.5 % Neutrophils # (Auto) 3.9 TH/MM3 Lymphocytes # (Auto) 2.3 TH/MM3 Monocytes # (Auto) 0.4 TH/MM3 Eosinophils # (Auto) 0.1 TH/MM3 Basophils # (Auto) 0.0 TH/MM3 CBC Comment DIFF FINAL Differential Comment D-Dimer Quantitative (PE/DVT) LESS THAN 0.19 MG/L FEU Blood Urea Nitrogen 9 MG/DL Creatinine 0.85 MG/DL Random Glucose 119 MG/DL Total Protein 8.1 GM/DL Albumin 3.8 GM/DL Calcium Level 8.8 MG/DL Magnesium Level 1.9 MG/DL Alkaline Phosphatase 105 U/L Aspartate Amino Transf (AST/SGOT) 17 U/L Alanine Aminotransferase (ALT/SGPT) 25 U/L Total Bilirubin 0.3 MG/DL Sodium Level 141 MEQ/L Potassium Level 3.4 MEQ/L Chloride Level 107 MEQ/L Carbon Dioxide Level 24.6 MEQ/L Anion Gap 9 MEQ/L Estimat Glomerular Filtration Rate 101 ML/MIN Total Creatine Kinase 116 U/L Creatine Kinase MB 1.0 NG/ML Troponin I LESS THAN 0.02 NG/ML B-Type Natriuretic Peptide 16 PG/ML Differential Diagnosis Differential diagnosis includes asthma exacerbation, pulmonary embolism, pleural effusion, pleurisy, pneumonia, bronchitis, pericarditis, myocarditis, acute coronary syndrome, arrhythmia, LGL, WPW. Narrative Course IV was established, labs are drawn and sent, and the patient was placed on cardiac telemetry monitoring and continuous pulse oximetry monitoring. EKG was ordered and interpreted. Chest x-ray was obtained. The patient was administered Solu-Medrol and duo nebs. We attempted to obtain records from her [facility] visit several days ago regarding the d-dimer and possible CT pulmonary angiogram. [facility] reveal that the patient's d-dimer on February 16, 2018 was mildly elevated at 0.63. The patient's troponin at that time was negative. The patient had a CT pulmonary angiogram performed on February 16, 2018 at 2:50 PM which revealed no evidence of pulmonary embolism, normal CTA of the chest. No obvious pericardial effusion. Therefore, repeat CT pulmonary angiogram will not be performed. The patient's d-dimer here was less than 0.19, I highly doubt pulmonary embolism. BNP and troponin are unremarkable. No evidence of pericarditis or myocarditis. Patient has had no visible arrhythmias on telemetry monitoring. The patient was reassessed at 8:57 PM. The patient's symptoms have improved. She is requesting possibly symptom for anxiety, this may be contributing to her symptoms per her report. I will write for a few 0.5 mg Ativan tablets, but advised to follow-up with her primary physician. Diagnosis Primary Impression: Dyspnea Qualified Codes: R06.00 - Dyspnea, unspecified Additional Impressions: Asthma exacerbation Qualified Codes: J45.21 - Mild intermittent asthma with (acute) exacerbation Anxiety Patient Instructions: General Instructions Additional Instructions: Medications as directed. Follow-up with your primary physician. Return if symptoms worsen or progress. Work excuse for tomorrow. Please provide the patient a copy of her x-ray results and lab results at discharge. Med/Other Pt SpecificInfo: Prescription(s) given Scripts Lorazepam (Ativan) 0.5 Mg Tab 0.5 MG PO Q6H Y for ANXIETY AND/OR AGITATION, #7 TAB 0 Refills Prov: Carlos Almeida MD 02/19/18 Albuterol 8.5 GM Inh (Proair Hfa 8.5 GM Inh) 90 Mcg/Act Aer 2 PUFF INH Q6H Y for SHORTNESS OF BREATH, #1 INHALER 0 Refills 108 mcg/actuation Prov: Carlos Almeida MD 02/19/18 Prednisone (Prednisone) 20 Mg Tab 40 MG PO DAILY, #10 TAB 0 Refills Take 40 mg (2 tablets) daily for 5 days Prov: Carlos Almeida MD 02/19/18 Disposition: 01 DISCHARGE HOME Condition: Stable Carlos Almeida MD Feb 19, 2018 19:58
[2018-02-19 20:00] VITALS: O2SAT 98
[2018-02-19] MEDS ORDERED: RESP: ALBUTEROL 2.5 MG/IPRATROPIUM 0.5 MG NEB (SCH) INH ONE (20:00)
[2018-02-19] MEDS ORDERED: SODIUM CHLORIDE 0.9% FLUSH 10 ML FLUSH IVF PRN (20:00)
[2018-02-19] MEDS ORDERED: methylPREDNISolone SOD SUCC 125 MG/2 ML VIAL IV PUSH ONE (20:00)
[2018-02-19 20:05] VITALS: BP 157/65; PULSE 91; RESP 18; O2SAT 98
[2018-02-19 20:14] LABS: AUTOMATED NEUTROPHIL # 3.9 TH/MM3 (1.8-7.7); BASOPHIL % 0.5 % (0.0-2.0); EOSINOPHIL # 0.1 TH/MM3 (0-0.4); HEMATOCRIT 37.9 % (35.0-46.0); HEMOGLOBIN 12.7 GM/DL (11.6-15.3); LYMPH % 34.7 % (9.0-44.0); LYMPHOCYTE # 2.3 TH/MM3 (1.0-4.8); MEAN CELL VOLUME 86.8 FL (80.0-100.0); MEAN CORPUSCULAR HEMOGLOBIN 29.2 PG (27.0-34.0); MEAN CORPUSCULAR HGB CONC 33.6 % (32.0-36.0); MEAN PLATELET VOLUME 8.3 FL (7.0-11.0); MONO % 6.3 % (0.0-8.0); MONOCYTE # 0.4 TH/MM3 (0-0.9); NEUT % 57.5 % (16.0-70.0); PLATELET COUNT 324 TH/MM3 (150-450); RED BLOOD COUNT 4.37 MIL/MM3 (4.00-5.30); WHITE BLOOD COUNT 6.7 TH/MM3 (4.0-11.0)
--- NOTE | 2018-02-19 20:21 | RADRPT ---
EXAM DATE/TIME: 02/19/2018 19:59 [facility] COMPARISON: CHEST SINGLE AP, December 19, 2015, 11:50. INDICATIONS : Shortness of breath, chest pain starting today MEDICAL HISTORY : None. SURGICAL HISTORY : None. ENCOUNTER: Initial ACUITY: 1 day PAIN SCORE: 5/10 LOCATION: Bilateral chest FINDINGS: A single view of the chest demonstrates the lungs to be symmetrically aerated without evidence of mas s, infiltrate or effusion. The cardiomediastinal contours are unremarkable. Osseous structures are intact. CONCLUSION: No evidence of acute cardiopulmonary disease. John Valentino MD on February 19, 2018 at 20:18 Board Certified Radiologist. This report was verified electronically.
[2018-02-19 20:34] LABS: ALBUMIN 3.8 GM/DL (3.4-5.0); AST (GOT) 17 U/L (15-37); BICARBONATE 24.6 MEQ/L (21.0-32.0); BLOOD UREA NITROGEN 9 MG/DL (7-18); CALCIUM 8.8 MG/DL (8.5-10.1); CREATININE 0.85 MG/DL (0.50-1.00); GLOMERULAR FILTRATION RATE 101 ML/MIN (>89); GLUCOSE,RANDOM 119 MG/DL (74-106); MAGNESIUM 1.9 MG/DL (1.5-2.5)
[2018-02-19 20:39] LABS: ALKALINE PHOSPHATASE 105 U/L (45-117); ALT (GPT) 25 U/L (10-53); TOTAL BILIRUBIN ADULT 0.3 MG/DL (0.2-1.0); TOTAL PROTEIN 8.1 GM/DL (6.4-8.2); TROPONIN I LESS THAN 0.02 NG/ML (0.02-0.05)
[2018-02-19 20:52] LABS: CHLORIDE 107 MEQ/L (98-107); SODIUM (NA) 141 MEQ/L (136-145)
[2018-02-19 21:02] VITALS: BP 148/66; PULSE 97; RESP 18; O2SAT 99
[2018-02-19] MEDS ORDERED: ALBUAER3 INH (21:02)
[2018-02-19] MEDS ORDERED: LORA-392 PO (21:02)
[2018-02-19] MEDS ORDERED: PRED20 PO (21:02)
--- NOTE | 2018-02-19 23:26 | EKG ---
Date Performed: 02/19/2018 Time Performed: 19:55:37 PTAGE: 22 years EKG: SINUS TACHYCARDIA WITH SHORT [place] INTERVAL MODERATE ST DEPRESSION ABNORMAL ECG Compared to PREVIOUS TRACING , rate has increased with ST/T wave changes DOCTOR: Emmanuel Foley Interpretating Date/Time 02/19/2018 23:24:35
== END 2018-02-19 21:31 | disposition home or self-care (01) ==
LOC: NEPC 19:35
DX: J45.21 Mild intermittent asthma with (acute) exacerbation (principal); F41.9 Anxiety disorder, unspecified; R00.0 Tachycardia, unspecified
CPT/HCPCS: 71045; 80053; 82550; 82552; 83735; 83880; 84484; 85025; 85379; 93005; 94664; 96374; 99285; J2930